=== PATIENT | male | born 1975 | race Caucasian/White ===

== ENCOUNTER 2023-04-08 18:15 | Emergency (ER) | payer OTHER, SELFPAY ==
[2023-04-08 18:26] VITALS: BP 145/62; PULSE 115; RESP 20; TEMP 36.9; O2SAT 94
[2023-04-08 18:32] VITALS: BP 145/62; PULSE 115; RESP 20; TEMP 36.9; O2SAT 94
--- NOTE | 2023-04-08 18:42 | ED.GENADULT ---
HPI - General Adult General Chief complaint: Skin/Abscess/Foreign Body Stated complaint: Rt Leg Infection Source: patient, RN notes reviewed and old records reviewed Mode of arrival: ambulatory Limitations: no limitations History of Present Illness HPI narrative: 47-year-old male patient presents to [facility] with complaint of open wound/sore on upper posterior thigh the patient stated started over the weekend and got firmer. patient states has had drainage. Patient states also has had coughing congestion for about a week, then has had fever chills and myalgias for the last 2 days. Patient has not taken anything for symptoms Related Data Allergies Allergy/AdvReac Type Severity Reaction Status Date / Time alprazolam [From Xanax] AdvReac Intermediate ankle edema Verified 04/08/23 18:25 fexofenadine [From Holly] AdvReac Intermediate elevated Verified 04/08/23 18:25 blood pressure Review of Systems Constitutional: Constitutional: Reports body ache(s), Reports chills, Reports fatigue and Reports fever(s) Eyes: Eyes: Reports no additional eye complaints ENT: Reports system reviewed and no additional complaints, except as documented and Reports nasal congestion Cardiovascular: Cardiovascular: Reports no additional cardiovascular complaints Respiratory: Respiratory: Reports chest congestion and Reports cough Integumentary/Breasts: Skin/Breast: Reports wounds ( open area to upper posterior right thigh) Neurologic: Reports system reviewed and no additional complaints, except as documented [facility] Past Medical History Medical History Allergies Heart disease Family History Family History Father Hypertension Heart disease Mother Diabetes mellitus Social History Social History Smoking status: Never smoker Alcohol intake: current Alcohol use details: seldom Substance use: never Substance use type: does not use Living arrangements: with family Occupation/Education: occupation 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 There is no relevant family history pertinent to the patient complaint. Exam Const: General: cooperative, healthy appearing, no acute distress and well nourished Nutritional Appearance: well nourished Orientation/consciousness: patient oriented x3 Limitations: no limitations HENMT: Head: normal to inspection and normocephalic Ears: external ears normal, TM's normal bilaterally, mastoids normal and Abnormal EAC present Face/Nose/Sinus: normal facial exam Face and sinus: normal facial exam Mouth: Yes Normal oral and palatal mucosa present, Yes oropharynx normal and Yes moist mucous membranes Throat: posterior oropharynx normal, tonsils normal, uvula midline and no uvular edema Eyes: General: appearance normal, both eyes and all related structures Sclera: sclerae normal Pupils: Equal, round and reactive pupils present Resp: Effort & Inspection: normal respiratory effort, able to speak in complete sentences, no audible wheezes, no cough, no respiratory distress and no retractions Cardio: Rate: regular rate Skin: General skin exam: wounds noted ( 5 cm x 5 cm subcutaneous skin abscess to posterior upper right leg.) Rashes: no rashes Trauma: no lacerations or abrasions Wounds: no wounds Other: 5 cm x 5 cm subcutaneous skin abscess to posterior upper right leg. wound open without drainage at this time Full body images: 1. 555 subcutaneous abscess. No drainage, no erythema no warmth Neuro: General: patient oriented x3 Cranial nerv
== END 2023-04-08 18:53 | disposition home or self-care (01) ==
PROVIDERS: Emergency Provider Registered Nurse; PCP Nurse Practitioner Family
DX: L02.415 Cutaneous abscess of right lower limb (principal); B95.62 Methicillin resistant Staphylococcus aureus infection as the cause of diseases classified elsewhere
CPT/HCPCS: 87070; 87147; 87181; 87186; 87205; 99213; G0463

== ENCOUNTER 2023-04-09 14:15 | Emergency (ER) | payer OTHER, SELFPAY | END 2023-04-09 14:19 | disposition left against medical advice (07) | PROVIDERS: PCP Nurse Practitioner Family | DX: Z53.21 Procedure and treatment not carried out due to patient leaving prior to being seen by health care provider (principal) | CPT/HCPCS: 99199 ==

== ENCOUNTER 2023-06-09 12:34 | Emergency (ER) | payer OTHER, SELFPAY ==
[2023-06-09 12:43] VITALS: BP 150/85; PULSE 108; RESP 18; TEMP 37.4; O2SAT 98
--- NOTE | 2023-06-09 12:43 | ED.GENADULT ---
HPI - General Adult General Chief complaint: Upper Respiratory Infection Stated complaint: Congestion and Cough Source: patient, RN notes reviewed and old records reviewed Mode of arrival: ambulatory Limitations: no limitations History of Present Illness HPI narrative: 47-year-old male presents to [facility] with complaints cough, congestion, sinus pressure in this started late Tuesday night. Patient taking [id number] medications with no relief. Patient denies chest pain, shortness of breath, weakness, dizziness Related Data Allergies Allergy/AdvReac Type Severity Reaction Status Date / Time alprazolam [From Xanax] AdvReac Intermediate ankle edema Verified 04/11/23 15:31 fexofenadine [From Holly] AdvReac Intermediate elevated Verified 04/11/23 15:31 blood pressure Review of Systems Constitutional: Constitutional: Reports no additional constitutional complaints, Denies body ache(s), Denies chills, Denies fatigue, Denies fever(s) and Reports headache(s) Eyes: Eyes: Reports no additional eye complaints and Denies blurry vision ENT: Reports system reviewed and no additional complaints, except as documented, Denies vertigo, Denies dizziness, Denies ear discharge, Denies otalgia, Denies facial pain, Denies headache(s), Reports nasal congestion, Reports nasal discharge, Reports sinus pain, Reports sinus pressure and Denies sore throat Cardiovascular: Cardiovascular: Reports no additional cardiovascular complaints, Denies chest pain, Denies chest pain at rest, Denies rapid heart rate and Denies dyspnea Respiratory: Respiratory: Reports no additional respiratory complaints, Reports chest congestion, Reports cough, Denies pain on inspiration, Denies pain with cough and Denies dyspnea Gastrointestinal: Gastrointestinal: Denies abdominal pain, Denies diarrhea, Denies nausea and Denies vomiting Integumentary/Breasts: Skin/Breast: Denies rash Neurologic: Reports system reviewed and no additional complaints, except as documented, Denies vertigo, Denies dizziness and Denies headache(s) Endocrine: Endocrine: Denies fatigue [facility] Past Medical History Medical History Allergies Heart disease Family History Family History Father Hypertension Heart disease Mother Diabetes mellitus Social History Social History Smoking status: Never smoker Alcohol intake: current Alcohol use details: seldom Substance use: never Substance use type: does not use Living arrangements: with family Occupation/Education: occupation 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 There is no relevant family history pertinent to the patient complaint. Exam Const: General: cooperative, healthy appearing, no acute distress and well nourished Nutritional Appearance: well nourished Orientation/consciousness: patient oriented x3 Limitations: no limitations HENMT: Head: normal to inspection and normocephalic Ears: external ears normal, TM's normal bilaterally, mastoids normal and Abnormal EAC present Face/Nose/Sinus: normal facial exam Face and sinus: normal facial exam Mouth: Yes Normal oral and palatal mucosa present, Yes oropharynx normal and Yes moist mucous membranes Throat: posterior oropharynx normal, tonsils normal, uvula midline and no uvular edema Eyes: General: appearance normal, both eyes and all related structures Sclera: sclerae normal Pupils: Equal, round and reactive pupils present Resp: Effort & Inspection: normal respiratory effort, able to speak in complete sentences, no audible wheezes,
== END 2023-06-09 13:04 | disposition home or self-care (01) ==
PROVIDERS: Emergency Provider Registered Nurse; PCP Nurse Practitioner Family
DX: U07.1 COVID-19 (principal); I51.9 Heart disease, unspecified; E78.00 Pure hypercholesterolemia, unspecified; I10 Essential (primary) hypertension; E11.9 Type 2 diabetes mellitus without complications
CPT/HCPCS: 87426; 87804; 99213; G0463

== ENCOUNTER 2023-08-21 17:02 | Emergency (ER) | payer OTHER, SELFPAY ==
[2023-08-21 17:20] VITALS: BP 105/86; PULSE 122; RESP 18; TEMP 38.1; O2SAT 95
[2023-08-21 17:21] VITALS: BP 105/86; PULSE 122; RESP 18; TEMP 38.1; O2SAT 95
--- NOTE | 2023-08-21 17:32 | ED.SKABFB ---
HPI - Skin/Abscess/Foreign Bdy General Chief complaint: Skin/Abscess/Foreign Body Stated complaint: fatigue Time Seen by Provider: 08/21/23 17:32 Source: patient Mode of arrival: ambulatory Limitations: no limitations History of Present Illness HPI narrative: 48-year-old male with history of cellulitis presents today with complaint of erythema, swelling, pain to right lower extremity for 3 days. Reports symptoms started on Tuesday and getting progressively worse. Ambulatory with steady gait. Patient reports today feeling feverish and fatigued. Taking ibuprofen and Tylenol to treat pain. Patient concern for cellulitis. Denies injury. All systems reviewed and negative except as noted above. Related Data Allergies Allergy/AdvReac Type Severity Reaction Status Date / Time alprazolam [From Xanax] AdvReac Intermediate ankle edema Verified 08/21/23 17:21 fexofenadine [From Holly] AdvReac Intermediate elevated Verified 08/21/23 17:21 blood pressure Review of Systems Review of Systems: CONSTITUTIONAL: Denies fever, chills, or sweats. EYES: Denies visual changes, redness, or discharge. ENT: Denies rhinorrhea, congestion, sore throat, or otalgia. CARDIOVASCULAR: Denies chest pain, palpitations, or edema. RESPIRATORY: Denies cough or dyspnea. GASTROINTESTINAL: Denies abdominal pain, nausea, vomiting, or diarrhea. GENITOURINARY: Denies dysuria or hematuria. SKIN: Denies rash or itching. Reports redness, pain and swelling to right lower extremity. MUSCULOSKELETAL: Denies back pain, joint pain, or myalgia. NEUROLOGIC: Denies headache, numbness, or weakness. PSYCHIATRIC: Denies anxiety or depression. All other systems reviewed are negative, except as documented in HPI. 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 There is no relevant family history pertinent to the presenting complaint. Exam Narrative: GENERAL: This is a well-nourished, well-developed patient, in no apparent distress. HEAD: normocephalic, atraumatic. EYES: PERRL. Sclera clear/white. Vision is grossly intact. EARS: External ears normal NOSE: External nose normal NECK: Neck supple, non-tender without lymphadenopathy, masses or thyromegaly. CARDIOVASCULAR: Regular rate and rhythm without murmurs, gallops, or rubs. RESPIRATORY: Clear to auscultation. Breath sounds equal bilaterally. No wheezes, rales, or rhonchi. SKIN: warm, Dry, intact with no suspicious lesions or rash, good texture and turgor. NEURO: awake, alert, and oriented to person, place and time. There were no obvious focal neurologic abnormalities. EXTREMITIES: No joint tenderness, effusion. Erythema to right lower extremity from ankle to just below knee and also posterior thigh. Warm to touch. No open wounds noted. No fluctuance concerning for abscess. Course Course Level of Care: Express Care Visit Vital Signs Vital signs: Vital Signs Temperature 38.1 C H 08/21/23 17:20 Pulse Rate 122 H 08/21/23 17:20 Respiratory Rate 18 08/21/23 17:20 Blood Pressure 105/86 08/21/23 17:20 Pulse Oximetry 95 08/21/23 17:20 Oxygen Delivery Room Air 08/21/23 17
[2023-08-21 17:33] VITALS: PULSE 120; O2SAT 95
[2023-08-21] MEDS: cefTRIAXone 1 GM, LIDOCAINE HCL 1% LOCAL INJ 2.1 ML IM (17:43)
== END 2023-08-21 17:58 | disposition home or self-care (01) ==
PROVIDERS: Emergency Provider Nurse Practitioner Family; PCP Nurse Practitioner Family
DX: L03.115 Cellulitis of right lower limb (principal)
CPT/HCPCS: 96372; 99213; G0463; J0696

== ENCOUNTER 2023-12-15 14:23 | Outpatient (CLI) | payer OTHER, SELFPAY ==
--- NOTE | ~2023-12-15 | CT_ITS ---
EXAMINATION: CT abdomen pelvis wo con DATE: 12/15/2023 14:44 INDICATION: Unspecified abdominal pain. TECHNIQUE: Computed tomography (CT) of the abdomen and pelvis was performed without intravenous contr ast. Automated exposure control and iterative reconstruction technique were employed. The dose-length product was 1650.90 mGy-cm. COMPARISON: None. FINDINGS: The visualized portions of lung bases demonstrate mild atelectasis. A calcified right lung nodule is consistent with old granulomatous disease. No pleural effusion. The heart size is normal. N o pericardial effusion. There is diffuse hepatic steatosis. The liver demonstrates surface nodularity , consistent with cirrhosis. There is mild splenomegaly. The gallbladder, pancreas, adrenal glands, a nd kidneys are normal. There is no urolithiasis. There are no dilated loops of bowel. The appendix is normal. There is an umbilical hernia containing fat. Periumbilical varices are noted. There is mild gastrohepatic, periportal, aortocaval, left para-aortic, bilateral common iliac, and bilateral platform beater al iliac lymphadenopathy. There is no free intraperitoneal fluid. There is moderate thoracic and lumb ar spondylosis. IMPRESSION: 1. Cirrhosis of the liver with portal venous hypertension. 2. Umbilical hernia containing fat. 3. Mild abdominal and pelvic lymphadenopathy, likely reactive. Reviewed, dictated and finalized at location A.
== END 2023-12-15 14:24 | disposition home or self-care (01) ==
LOC: ANHIMG 14:26
PROVIDERS: PCP Nurse Practitioner Family; Visit Provider Nurse Practitioner Family
DX: D72.829 Elevated white blood cell count, unspecified (principal); R10.9 Unspecified abdominal pain; R19.7 Diarrhea, unspecified; K74.60 Unspecified cirrhosis of liver; K42.9 Umbilical hernia without obstruction or gangrene
CPT/HCPCS: 74176

== ENCOUNTER 2024-01-05 08:17 | Outpatient (CLI) | payer OTHER, SELFPAY ==
--- NOTE | ~2024-01-05 | US_ITS ---
EXAMINATION: US abdomen limited DATE: 01/05/2024 09:04 INDICATION: Cirrhosis TECHNIQUE: Multiple grayscale and Doppler ultrasound images of the abdomen were obtained. COMPARISON: 12/15/2023 FINDINGS: The pancreatic head and body are normal in appearance. The pancreatic tail is not visualized. The vi sualized proximal inferior vena cava and aorta are unremarkable. There is subtle liver surface nodula rity consistent with cirrhosis. There is increased parenchymal echogenicity and coarsened echotexture consistent with diffuse hepatic steatosis. No liver lesion identified. No intrahepatic biliary duct dilation suspected. Portal venous flow was seen in the hepatopetal, normal direction and has normal Doppler waveform. The gallbladder is normal in appearance. There is no cholelithiasis. The common bi le duct measures 3-4 mm, which is normal. Sonographic Collins sign was reported as negative by the son ographer. IMPRESSION: 1. Diffuse hepatic steatosis and cirrhosis. Reviewed, dictated and finalized at location A.
== END 2024-01-05 08:18 | disposition home or self-care (01) ==
PROVIDERS: PCP Nurse Practitioner Family; Visit Provider Nurse Practitioner Family
DX: K74.60 Unspecified cirrhosis of liver (principal); K76.0 Fatty (change of) liver, not elsewhere classified
CPT/HCPCS: 76705

== ENCOUNTER 2024-02-02 15:40 | Outpatient (CLI) | payer OTHER, SELFPAY ==
[2024-02-02 15:55] LABS: Basophils Absolute Auto 0.1 K/mm3 (0.0-0.1); Basophils Percent Auto 0.6 % (0.2-1.2); Eosinophils Absolute Auto 0.4 K/mm3 (0-0.3); Eosinophils Percent Auto 2.5 % (0-4.4); Hematocrit 41.6 % (42.0-52.0); Hemoglobin 13.7 g/dL (14.0-18.0); Immature Granulocyte Absolute 0.06 K/mm3 (0.00-0.031); Immature Granulocyte Percent A 0.4 % (0-0.5); Lymphocytes Absolute Auto 4.31 K/mm3 (0.9-3.2); Lymphocytes Percent Auto 28.6 % (18.3-44.2); Mean Corpuscular HGB Conc 32.9 g/dl (32-36); Mean Corpuscular Hemoglobin 31.6 pg (26-34); Mean Corpuscular Volume 95.9 fl (80-100); Monocytes Percent Auto 6.3 % (2.6-8.5); Neutrophils Absolute Auto 9.3 K/mm3 (1.3-6.7); Neutrophils Percent Auto 61.6 % (45.5-73.1); Platelet Count Result 326 k/mm3 (150-375); Red Blood Count 4.34 M/mm3 (4.6-6.20); Red Cell Distribution Width 12.5 % (11.5-14.5); White Blood Count 15.1 K/mm3 (4.5-10.0)
[2024-02-02 16:00] LABS: Atypical Lymphocytes Present; Platelet Estimate Adequate (Adequate); Schistocytes None Seen
[2024-02-02 16:38] LABS: Alanine Aminotransferase 45 U/L (6-50); Albumin Level 4.6 g/dL (3.5-5.1); Alkaline Phosphatase 74 U/L (38-126); Anion Gap 9 mmol/L (4-12); Aspartate Amino Transferase 56 U/L (17-59); Bilirubin,Total 0.6 mg/dL (0.2-1.3); Blood Urea Nitrogen 17 mg/dL (9-20); CRP 1.2 mg/dL (<1.0); Calcium 9.6 mg/dL (8.4-10.2); Carbon Dioxide 31 mmol/L (22-30); Chloride 99 mmol/L (98-107); Estimated Glomerular Filt Rate > 60; Glucose 120 mg/dL (65-110); Potassium 4.2 mmol/L (3.4-5.0); Sodium 139 mmol/L (137-145)
[2024-02-02 18:06] LABS: Erythrocyte Sedimentation Rate 21 mm/hr (0-20)
== END 2024-02-02 15:41 | disposition home or self-care (01) ==
LOC: ANHLAB 15:42
PROVIDERS: PCP Nurse Practitioner Family; Visit Provider Internal Medicine Hematology & Oncology
DX: D72.829 Elevated white blood cell count, unspecified (principal)
CPT/HCPCS: 36415; 80053; 85025; 85652; 86140; 88184

== ENCOUNTER 2024-04-09 08:12 | Emergency (ER) | payer OTHER, SELFPAY ==
[2024-04-09 08:26] VITALS: BP 130/78; PULSE 108; RESP 20; TEMP 36.8; O2SAT 100
[2024-04-09 08:30] VITALS: BP 130/78; PULSE 108; RESP 20; TEMP 36.8; O2SAT 100
--- NOTE | 2024-04-09 08:52 | ED.SKABFB ---
HPI - Skin/Abscess/Foreign Bdy General Chief complaint: Skin/Abscess/Foreign Body Stated complaint: Cellulitis Right Leg Time Seen by Provider: 04/09/24 08:37 Source: patient, RN notes reviewed and old records reviewed Mode of arrival: ambulatory Limitations: no limitations History of Present Illness HPI narrative: Patient presents today complaining of cellulitis of the right lower leg. 6 days ago he noted redness to this leg and 5 days ago he had an appointment with his PCP and was told to go to the ER. He was subsequently seen in the ER at [facility]. Labs were completed and patient was discharged home on a 10 course of Keflex. States the antibiotics have helped with the redness and cellulitis symptoms, but he presents today asking if there is anything he can take, that can kick start these antibiotics and make them work better. Patient had cellulitis last year and was admitted to the hospital for 1 week. He is trying to avoid that at this time. Related Data Home Medications Medication Instructions Recorded Confirmed cholecalciferol (vitamin D3) 125 125 mcg PO TID 12/21/23 04/09/24 mcg (5,000 unit) capsule cephalexin 500 mg capsule 500 mg PO QID 04/09/24 04/09/24 lactobacillus combination no.9 4 4,000 mmu cells PO DAILY 04/09/24 04/09/24 billion cell capsule (Adult 50 Plus Probiotic) naproxen 500 mg tablet 500 mg PO BID 04/09/24 04/09/24 Allergies Allergy/AdvReac Type Severity Reaction Status Date / Time alprazolam [From Xanax] AdvReac Intermediate ankle edema Verified 04/09/24 08:33 fexofenadine [From Holly] AdvReac Intermediate elevated Verified 04/09/24 08:33 blood pressure Review of Systems Review of Systems: CONSTITUTIONAL: Denies body aches, fever, chills, or sweats. EYES: Denies visual changes, redness, or discharge. ENT: Denies rhinorrhea, congestion, sore throat, or otalgia. CARDIOVASCULAR: Denies chest pain, palpitations, or edema. RESPIRATORY: Denies cough or dyspnea. GASTROINTESTINAL: Denies abdominal pain, nausea, vomiting, or diarrhea. GENITOURINARY: Denies dysuria or hematuria. SKIN: + redness and swelling to the right lower leg MUSCULOSKELETAL: Denies back pain, joint pain, or myalgia. NEUROLOGIC: Denies headache, numbness, tingling, or weakness. PSYCH: Denies depression or anxiety. [facility] Past Medical History Medical History Allergies Heart disease Family History Family History Father Hypertension Heart disease Mother Diabetes mellitus Social History Social History Social History: 02/24/24 very confident with medical forms Smoking status: Never smoker Alcohol intake: current Alcohol use details: seldom Substance use: never Substance use type: does not use Do You Feel Safe in your Home?: Yes Lack of Transportation: No Lack of Food: Never True Current Housing: I Have Housing Concerned About Future Housing: No Difficulty Paying Gas/Electric Bills: No Difficulty Paying for Meds: No Currently Unemployed: No Education: Bachelor's Degree Difficulty w/ Childcare or Family Care: No Living arrangements: with family Occupation/Education: occupation 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 Please see nursing chart for further information. There is no relevant family history pertinent to the presenting complaint Exam Narrative: GENERAL: Well-appearing, well-nourished, and in no acute distress. HEAD: Normocephalic, atraumatic. EYES: EOMI. No redness or drainage. Conjunctivae normal. ENT: Mucous membranes pink and moist. NECK: Normal AROM. CHEST: No respiratory distress. EXTREMITIES: Right leg: Erythema and increased warmth to the lower leg. Patient has the area of redness marked with a marker, and has receded from its peak. Distal sensation intact. Capillary refill normal. Full range of motion of the ankle and knee. SKIN: Warm, dry, no rash. Capillary refill normal. Normal skin turgor. NEURO: No focal deficits. Alert and oriented x3. Gait steady. PSYCH: Normal affect. No signs of depression or anxiety. Course Course Level of Care: Express Care Visit Vital Signs Vital signs: Vital Signs Temperature 98.3 F 04/09/24 08:26 Pulse Rate 108 H 04/09/24 08:26 Respiratory Rate 20 04/09/24 08:26 Blood Pressure 130/78 04/09/24 08:26 Pulse Oximetry 100 04/09/24 08:26 Oxygen Delivery Room Air 04/09/24 08:26 Temperature 98.3 F 04/09/24 08:30 Pulse Rate 108 H 04/09/24 08:30 Respiratory Rate 20 04/09/24 08:30 Blood Pressure 130/78 04/09/24 08:30 Pulse Oximetry 100 04/09/24 08:30 Oxygen Delivery Room Air 04/09/24 08:30 Reviewed MDM - Skin/Abscess/Foreign Bdy MDM Narrative Medical decision making narrative: Patient does state that the antibiotics are working. Recommend that patient follow-up with his PCP when he is finished with the Keflex to determine if additional antibiotics are needed. At this time since he is seeing improvement, no additional interventions are recommended. Patient agrees with plan. Anticipatory guidance given. Differential Diagnosis Differential diagnosis: Likely abscess of skin or subcutaneous tissue and cellulitis Critical Care Time Critical Care Time Critical Care Time: No Discharge Plan Discharge Clinical Impression: Cellulitis of right leg Patient Disposition: Home, Self-Care Condition: Stable Instructions: Cellulitis (ED) Additional Instructions: Please continue to take your Keflex until gone. Elevate your leg to help with swelling. Please follow-up with your PCP when you are finished with your Keflex, if your symptoms have not resolved. As discussed, please go to the ER immediately if symptoms worsen to include fever, worsening redness. Your blood pressure was elevated above 120/80 today at Urgent Care. This puts you above the threshold for follow up. Please schedule a followup visit with your personal physician as soon as possible, for further evaluation and treatment. Even blood pressure exceeding 120/80 may indicate pre-hypertension. Prescriptions: No Action cephalexin 500 mg capsule 500 mg PO QID naproxen 500 mg tablet 500 mg PO BID Adult 50 Plus Probiotic 4 billion cell capsule 4,000 mmu cells PO DAILY pantoprazole [Protonix] 20 mg tablet,delayed release (DR/EC) 20 mg PO BID Qty: 60 4RF Rx Instructions: take 1 tablet b.i.d. on empty stomach and wait 15-20 minutes before eating or drinking metoprolol succinate 25 mg tablet extended release 24 hr See Rx Instructions .ROUTE .COMPLEX Qty: 90 1RF Dose Instruction: TAKE 1 TABLET BY MOUTH DAILY Rx Instructions: TAKE 1 TABLET BY MOUTH DAILY cholecalciferol (vitamin D3) 125 mcg (5,000 unit) capsule 125 mcg PO TID atorvastatin 40 mg tablet 40 mg PO QHS Qty: 90 1RF amlodipine 5 mg tablet 5 mg PO DAILY Qty: 90 1RF lisinopril 40 mg tablet 40 mg PO DAILY Qty: 90 1RF metformin 500 mg tablet extended release 24 hr 1,000 mg PO DAILY Qty: 180 1RF Hold Instructions: Order Change semaglutide 0.25 mg or 0.5 mg (2 mg/3 mL) pen injector 0.5 mg subcut WEEKLY Qty: 3 0RF furosemide 20 mg tablet 20 mg PO QAM Qty: 90 0RF Follow-up/Referrals: PHYSICIAN,CLEAN UP SUPERVISOR [Primary Care Provider] - Time of Disposition: 08:54
== END 2024-04-09 08:58 | disposition home or self-care (01) ==
PROVIDERS: Emergency Provider Nurse Practitioner
DX: L03.115 Cellulitis of right lower limb (principal); I51.9 Heart disease, unspecified
CPT/HCPCS: 99211; G0463

== ENCOUNTER 2024-06-21 14:06 | Outpatient (CLI) | payer OTHER, SELFPAY ==
--- OUTSIDE RECORDS SUMMARY | 2024-06-21 14:12 | XMS_ITS | Clinical Summary ---
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 Name Role Phone Unavailable Primary Care Provider Unavailabl e Social History Tobacco Use Types Packs/Day Years Used Date Smoking Tobacco: Never Assessed Sex and Gender Information Value Date Recorded Sex Assigned at Not on file Legal Sex Male 6:17 PM CDT Gender Identity Not on file Sexual Orientation Not on file Plan of Treatment Health Maintenance Due Date Last Done Comments Colorectal Cancer Screening Colonoscopy (10 Years) 1976 Annual Physical 08/18/1979 Hepatitis C 1994 DTaP, Tdap and Td Vaccines ( 1 - Tdap) 08/18/1995 Hepatitis B Vaccines (1 of 3 - 19+ 3-dose series) 08/18/1995 COVID-19 Vaccine (2023-2 5 season) 2024 Influenza Adult (#1) 2024 Meningococcal B Vaccine Aged Out No l onger eligible based on patient's age to complete this topic Meningococcal Vaccine Aged Out No julien jenna eligible based on patient's age to complete this topic Pneumococcal Vaccine: Pediat rics (0 to 5 Years) and At-Risk Patients (6 to 64 Years) Aged Out No longer eligible b ased on patient's age to complete this topic RSV Immunizations Under 20 Months Aged Out No longer eligible based on patient's age to complete this topic
--- OUTSIDE RECORDS SUMMARY | 2024-06-21 14:12 | XMS_ITS | Clinical Summary ---
Author Organization [facility] Address [address] [place] [address] Care Team Providers Care Manager Books Name Role Phone Thalia Beckman NP Primary Care Provider [phone] Allergies No known active allergies Medications metoprolol XL (TOPROL-XL) 25 mg extended release tablet Take 1 tablet (25 mg total) by mouth daily 07/29/2023 Active amLODIPine (NORVASC) 5 mg tablet Take 1 tablet (5 mg total) by mouth daily Active lisinopriL (PRINIVIL,ZESTR IL) 40 mg tablet Take 1 tablet (40 mg total) by mouth daily Active semaglutide (Ozempic) 0.25 mg or 0.5 mg(2 mg/1.5 mL) pen injector injection Inject 0.25 mg under the skin every 7 days Weekly on Tuesday Active atorvastatin (LIPITOR) 40 mg tablet Take 1 tablet (40 mg total) by mouth nightly Active levocetirizine (XYZAL) 5 mg tablet Take 1 tablet (5 mg total) by mouth daily Active cholecalciferol (VITAMIN D-3) 5,000 unit tablet Take 1 tablet (5,000 Units total) by mouth daily Active naproxen (NAPROSYN) 500 mg tablet Take 1 tablet (500 mg total) by mouth 2 (two) times a day with meals 60 tablet 04/04/2024 Active Active Problems Problem Noted Date Diagnosed Date Cellulitis of right lower limb 08/25/2023 Sepsis without acute organ dysfunction Morbid obesity 08/25/2023 Primary hypertension 08/25/2023 Cellulitis of right lower extremity 08/25/2023 Encounters Date Type Department Care Team Description 04/04/2024 2:47 PM BUSINESS CONTINUITY PLANNER - 04/04/2024 4:44 PM BUSINESS CONTINUITY PLANNER Emergency [facility] Emergency Department [address] [place] [address] [phone] Cellulitis of right lower extremity (Primary Dx) Discharge Disposition: Discharge to home or self care from Last 3 Months Medical History Medical History Date Comments Hypertension Morbid obesity (HCC) Hyperlipidemia Social History Tobacco Use Types Packs/Day Years Used Date Smoking Tobacco: Never Smokeless Tobacco: Never Tobacco Cessation:Counseling Given: Not Answered [facility] Utilities Answer Date Recorded In the past 12 months has th e electric, gas, oil, or water company threatened to shut off services in your home? No 08/26/2023 Social Connection and Isolat ion Panel [NHANES] Answer Date Recorded In a typical week, how many times do you talk on the phone with family, friends, or neighbors? More than three times a week 08/26/2023 How often do you get togethe r with friends or relatives? More than three times a week 08/26/2023 How often do you attend chur ch or hoahaoism services? Never 08/26/2023 Do you belong to any clubs o r organizations such as shinto groups, unions, fraternal or athletic groups, or school groups? No 08/26/2023 How often do you attend meet ings of the clubs or organizations you belong to? Never 08/26/2023 Are you , , di vorced, , never , or living with a partner? 08/26/2023 Overall Financial Resource Strain (CARDIA) Answe r Date Recorded How hard is it for you to pa y for the very basics like food, housing, medical care, and heating? Not very hard 08/26/2023 Hunger Vital Sign Answer Date Recorded Within the past 12 months, y ou worried that your food would run out before you got the money to buy more. Never true 08/26/19 24 Within the past 12 months, t he food you bought just didn't last and you didn't have money to get more. Never true 08/26/2023 PRAPARE - Transportation Answer Date Re corded In the past 12 months, has l ack of transportation kept you from medical appointments or from getting medications? No 08/07 In the past 12 months, has l ack of transportation kept you from meetings, work, or from getting things needed for daily living? No 08/26/2023 Housing Stability Vital Sign Answer Jose Luis e Recorded In the last 12 months, was t here a time when you were not able to pay the mortgage or rent on time? No 08/26/2023 In the last 12 months, how many places have you lived? 1 08/26/2023 In the last 12 months, was t here a time when you did not have a steady place to sleep or slept in a intermediate (including now)? No 08/26/2023 Personal Safety Answer Date Recorded Have you ever been in or are you currently in a harmful physical or emotional relationship or is someone making you feel afraid or unsafe? Denies 04/04/2024 Sex and Gender Information Value Date Recorded Sex Assigned at Not on file Legal Sex Male 6:08 PM BUSINESS CONTINUITY PLANNER Gender Identity Not on file Sexual Orientation Not on file Obstetrics History Last Filed Vital Signs Vital Sign Reading Time Taken Comments Blood Pressure 110/59 04/04/2024 4:00 PM BUSINESS CONTINUITY PLANNER Pulse 104 04/04/2024 4:00 PM BUSINESS CONTINUITY PLANNER Temperature 37.3 C (99.1 F) 04/04/2024 1:43 PM BUSINESS CONTINUITY PLANNER Respiratory Rate 18 04/04/2024 4:00 PM BUSINESS CONTINUITY PLANNER Oxygen Saturation 100% 04/04/2024 4:00 PM BUSINESS CONTINUITY PLANNER Inhaled Oxygen Concentration - - Weight 155.3 kg (342 lb 6 oz) 04/04/2024 1:43 PM BUSINESS CONTINUITY PLANNER Height 180.3 cm (5' 11 ) 04/04/2024 1:43 PM BUSINESS CONTINUITY PLANNER Body Mass Index 47.75 04/04/2024 1:43 PM BUSINESS CONTINUITY PLANNER Plan of Treatment Health Maintenance Due Date Last Done Comments Colon Cancer Screening-Colonoscopy 1976 Depression Screening 1976 Hepatitis C Screening 1976 Pneumococcal vaccine <65 (1 of 2 - PCV) 1982 DTaP/Tdap/Td Vaccine (1 - Tdap) 11/04/1990 1 Hepatitis B Screening 1994 Regular Well Visit/Exam 18-64 1994 Covid-19 Vaccine ( season) 2024, 12/16/2020 Influenza Vaccine (#1) 2024 Procedures Procedure Name Priority Date/Time Associated Diagnosis Comments SEPSIS LACTATE WITH REFLEX STAT 04/04/2024 3:14 PM BUSINESS CONTINUITY PLANNER MANUAL DIFFERENTIAL STAT 04/04/2024 2 :08 PM BUSINESS CONTINUITY PLANNER EGFR STAT 04/04/2024 2:08 PM BUSINESS CONTINUITY PLANNER COMPREHENSIVE METABOLIC PANEL STAT 04/04/2024 2:08 PM BUSINESS CONTINUITY PLANNER CBC WITH AUTO DIFFERENTIAL STAT 04/04/2024 2:08 PM BUSINESS CONTINUITY PLANNER from Last 3 Months Results * Sepsis Lactate w/ Reflex (04/04/2024 3:14 PM BUSINESS CONTINUITY PLANNER) Pathologist [facility] Sepsis Lactate 1.1 0.7 - 2.0 mmol/L Comment:Testing performed by : [facility], [address] [place] [address], [id number] Blood 04/04/2024 3:14 PM BUSINESS CONTINUITY PLANNER 04/04/2024 3:17 PM BUSINESS CONTINUITY PLANNER Wade GONZALES LAB BLOOD ORDERABLES [facility] [address] [facility] Department [place] [address] * eGFR (04/04/2024 2:08 PM BUSINESS CONTINUITY PLANNER) eGFR 75 >=60 mL/min/1. 73 m2 Comment: Interpretive Data Reference Interval Normal >/= 90 mL/min/1.73m2 Mildly decreased* 60 - 89 mL/min/1.73m2 Mildly to moderately decreased 45 - 59 mL/min/1.73m2 Moderately to severely decreased 30 - 44 mL/min/1.73m2 Severely decreased 15 - 29 mL/min/1.73m2 Kidney Failure < 15 mL/min/1.73m2 *Relative to young adult level Estimated glomerular filtration rate is determined by the 2020 CKD-EPI equation recommended by the National Kidney Foundation (A Unifying Approach to GFR Estimation: Recommendations of the NKF-ASK Task Force on Reassessing the Inclusion of Race in Diagnosing Kidney Disease, JASN 2020). The CKD-EPI equation should not be used for patients with unstable renal function and has not been validated in children and those over 70. Current interpretive data was last reviewed 2021. Testing performed by: [address] [address] Blood 04/04/2024 2:08 PM BUSINESS CONTINUITY PLANNER 04/04/2024 2:17 PM BUSINESS CONTINUITY PLANNER us Musa Mcmahan DO LAB BLOOD ORDERABLES Final Res ult J CARLOS MALONE [facility] Department [place] [address] * (ABNORMAL) CBC with auto differential (04/04/2024 2:08 PM BUSINESS CONTINUITY PLANNER) WBC 17.1(H) 3.8 - 9.9 K/cumm Comment:Testing performed by : [address] [address] Hgb 12.2(L) 13.0 - 17.5 g/dL J CARLOS MALONE Comment:Testing performed by : [address] [address] Hct 36.3(L) 38.9 - 50.3 % J CARLOS MALONE Comment:Testing performed by : [address] [address] Plt 209 150 - 400 K/cumm J CARLOS MALONE Comment:Testing performed by : [address] [address] MPV 9.5 9.1 - 12.3 fL J CARLOS MALONE Comment:Testing performed by : [address] [address] RBC 3.87(L) 4.30 - 5.80 M/cumm J CARLOS MALONE Comment:Testing performed by : [address] [address] MCV 93.8 81.3 - 96.4 fL J CARLOS MALONE Comment:Testing performed by : [address] [address] MCH 31.5 27.1 - 33.3 pg J CARLOS MALONE Comment:Testing performed by : [address] [address] MCHC 33.6 32.3 - 35.7 g/dL J CARLOS MALONE Comment:Testing performed by : [address] [address] RDW CV 13.5 11.1 - 14.9 % J CARLOS MALONE Comment:Testing performed by : [address] [address] RDW SD 46.3 35.7 - 48.1 fL J CARLOS MALONE Comment:Testing performed by : [address] [address] NRBC abs 0.00 0.00 - 0.01 K/cumm J CARLOS MALONE Comment:Testing performed by : [address] [address] Blood 04/04/2024 2:08 PM BUSINESS CONTINUITY PLANNER 04/04/2024 2:17 PM BUSINESS CONTINUITY PLANNER us Musa Mcmahan DO LAB BLOOD ORDERABLES Edited Re denise - Final J CARLOS [address] [facility] Department of Laboratories [place], [place] [id number] * (ABNORMAL) Manual Differential (04/04/2024 2:08 PM BUSINESS CONTINUITY PLANNER) Differential Manual Comment:Testing performed by : [address] [address] Cells Counted 100 J CARLOS MALONE Comment:Testing performed by : [address] [address] Neutrophil abs 13.3(H) 1.5 - 6.5 K/cumm J CARLOS MALONE Comment:Testing performed by : [address] [address] Lymphocyte abs 2.6 0.8 - 3.3 K/cumm J CARLOS MALONE Comment:Testing performed by : [address] [address] Monocyte abs 1.0(H) 0.2 - 0.8 K/cumm J CARLOS Comment:Testing performed by : [address] [address] Basophil abs 0.2(H) 0.0 - 0.1 K/cumm J CARLOS Comment:Testing performed by : [address] [address] Neutrophil pct 78.0 % J CARLOS Comment: Interpretive Data Percent cell count reference ranges are not reported, since discordance with absolute values may lead to misinterpretation of CBC data. Current Interpretive Data was last revised on 2017. Testing performed by: [address] [address] Lymphocyte pct 15.0 % J CARLOS Comment: Interpretive Data Percent cell count reference ranges are not reported, since discordance with absolute values may lead to misinterpretation of CBC data. Current Interpretive Data was last revised on 2017. Testing performed by: [address] [address] Monocyte pct 6.0 % J CARLOS Comment: Interpretive Data Percent cell count reference ranges are not reported, since discordance with absolute values may lead to misinterpretation of CBC data. Current Interpretive Data was last revised on 2017. Testing performed by: [address] [address] Basophil pct 1.0 % J CARLOS Comment: Interpretive Data Percent cell count reference ranges are not reported, since discordance with absolute values may lead to misinterpretation of CBC data. Current Interpretive Data was last revised on 2017. Testing performed by: [address] [address] RBC morphology Consistent with RBC Indicies J CARLOS Comment:Testing performed by : [address] [address] Platelet estimate Automated Count Confirmed J CARLOS MALONE Comment:Testing performed by : [address], [place]., [address] Blood 04/04/2024 2:08 PM BUSINESS CONTINUITY PLANNER 04/04/2024 2:17 PM BUSINESS CONTINUITY PLANNER us Musa Mcmahan DO LAB BLOOD ORDERABLES Final Res ult J CARLOS [address] [facility] Department [place] [address] * (ABNORMAL) Comprehensive metabolic panel (04/04/2024 2:08 PM BUSINESS CONTINUITY PLANNER) Sodium 134(L) 135 - 145 mmol/L Comment:Testing performed by : [address] [address] Potassium, pl 4.3 3.3 - 4.9 mmol/L J CARLOS Comment:Testing performed by : [address] [address] Chloride 98 97 - 110 mmol/L J CARLOS Comment:Testing performed by : [address] [address] CO2 27 22 - 32 mmol/L J CARLOS Comment:Testing performed by : [address] [address] Anion gap 9 2 - 15 mmol/L J CARLOS Comment:Testing performed by : [address] [address] BUN 25 6 - 25 mg/dL J CARLOS Comment:Testing performed by : [address] [address] Creatinine 1.20 0.80 - 1.30 mg/dL J CARLOS Comment:Testing performed by : [address] [address] Glucose 129 70 - 199 mg/dL J CARLOS Comment: Interpretive Data Fasting glucose >/= 126 mg/dl is diagnostic for diabetes. Fasting is defined as no caloric intake for at least 8 hours. Fasting glucose between 100 mg/dl to 125 mg/dl is diagnostic of prediabetes. In a patient with classic symptoms of hyperglycemia or hyperglycemic crisis, a random glucose >/= 200 mg/dl is diagnostic for diabetes. In the absence of unequivocal hyperglycemia, results should be confirmed by repeat testing. The classification and Diagnosis of Diabetes Diabetes Care 2022; 46: S19-S40. Current interpretive data was last revised 2022. Testing performed by: [facility], [address] [place] [address]., [address] Calcium 9.1 8.5 - 10.3 mg/dL J CARLOS Comment:Testing performed by : [address] [address] Bilirubin, total 0.6 0.1 - 1.2 mg/dL J CARLOS Comment:Testing performed by : [address] [address] Protein, pl 8.9(H) 6.5 - 8.5 g/dL J CARLOS Comment:Testing performed by : [address] [address] Albumin 3.9 3.5 - 5.0 g/dL J CARLOS Comment:Testing performed by : [address] [address] Alk phos 59 40 - 130 Units/L J CARLOS Comment:Testing performed by : [address] [address] ALT 26 7 - 55 Units/L J CARLOS Comment:Testing performed by : [address] [address] AST 30 10 - 50 Units/L J CARLOS Comment:Testing performed by : [address] [address] Blood 04/04/2024 2:08 PM BUSINESS CONTINUITY PLANNER 04/04/2024 2:17 PM BUSINESS CONTINUITY PLANNER us Musa Mcmahan DO LAB BLOOD ORDERABLES Final Res ult J CARLOS [address] [facility] Department [place] [address] from Last 3 Months Insurance [facility] [place] [address] [employer] Advance Directives For more information, please contact: [phone] * Full Code (Latest Code Status on File) Date Activated Date Inactivated Comments 08/25/2023 3:04 PM 08/31/2023 3:46 PM Care Teams Manager Books Relationship Specialty Start Date End Date Thalia Beckman NP [address] [place] [id number] PCP - General Nurse Practitioner 04/09/23
--- OUTSIDE RECORDS SUMMARY | 2024-06-21 14:12 | XMS_ITS | Referral Summary ---
Author Organization [facility] Address [address] [place] [address] Care Team Providers Care Mosaic Worker Name Role Phone Thalia Beckman NP Primary Care Provider [phone] Encounters Date Type Department Care Team Description 04/04/2024 2:47 PM DIRECTOR [place] - 04/04/2024 4:[address] [facility] Emergency [facility] Emergency Department [address] [place] [id number] Cellulitis of right lower extremity (Primary Dx) Discharge Disposition: Discharge to home or self care from Last 3 Months Allergies No known active allergies Medications metoprolol [...] 08/25/2023 Cellulitis of right lower extremity 08/25/2023 Social History Tobacco Use Types Packs/Day Years Used Date Smoking Tobacco: Never Smokeless Tobacco: Never Tobacco Cessation:Counseling Given: Not Answered [facility] Utilities Answer Date Recorded In the past 12 months has th e [employer], gas, oil, or water [employer] threatened to shut off services in your [...] often do you attend chur ch or jain services? Never 08/26/2023 Do you belong to any clubs o r organizations such as taoist groups, unions, fraternal or athletic groups, or [...] 08/26/2023 Housing Stability Vital Sign Answer Jose Lusi e Recorded In the last 12 months, [...] place to sleep or slept in a fci (including now)? No 08/26/2023 Personal Safety Answer Date Recorded Have you ever been in or are you currently in a harmful physical or emotional relationship or is someone making you feel afraid or unsafe? Denies 04/04/2024 Sex and Gender Information Value Date Recorded Sex Assigned at Not on file Legal Sex Male 6:08 PM DIRECTOR [place] Gender Identity Not on file Sexual Orientation Not on file Last Filed Vital Signs Vital Sign Reading Time Taken Comments Blood Pressure 110/59 04/04/2024 4:00 PM DIRECTOR [place] Pulse 104 04/04/2024 4:00 PM DIRECTOR [place] Temperature 37.3 C (99.1 F) 04/04/2024 1:43 PM DIRECTOR [place] Respiratory Rate 18 04/04/2024 4:00 PM DIRECTOR [place] Oxygen Saturation 100% 04/04/2024 4:00 PM DIRECTOR [place] Inhaled Oxygen Concentration - - Weight 155.3 kg (342 lb 6 oz) 04/04/2024 1:43 PM DIRECTOR [place] Height 180.3 cm (5' 11 ) 04/04/2024 1:43 PM DIRECTOR [place] Body Mass Index 47.75 04/04/2024 1:43 PM DIRECTOR [place] Plan of Treatment Not on file Procedures Procedure Name Priority Date/Time Associated Diagnosis Comments SEPSIS LACTATE WITH REFLEX STAT 04/04/2024 3:14 PM DIRECTOR [place] MANUAL DIFFERENTIAL STAT 04/04/2024 2 :08 PM DIRECTOR [place] EGFR STAT 04/04/2024 2:08 PM DIRECTOR [place] COMPREHENSIVE METABOLIC PANEL STAT 04/04/2024 2:08 PM DIRECTOR [place] CBC WITH AUTO DIFFERENTIAL STAT 04/04/2024 2:08 PM DIRECTOR [place] from Last 3 Months Results * Sepsis Lactate w/ Reflex (04/04/2024 3:14 PM DIRECTOR [place]) Sepsis Lactate 1.1 0.7 - 2.0 mmol/L Comment:Testing performed by : [facility], [address] [place] [address]., [address] Blood 04/04/2024 3:14 PM DIRECTOR [place] 04/04/2024 3:17 PM DIRECTOR [place] us Wade GONZALES LAB BLOOD ORDERABLES Final R esult J CARLOS [address] [facility] Department [place] [address] * eGFR (04/04/2024 2:08 PM DIRECTOR [place]) eGFR 75 >=60 mL/min/1. 73 m2 Comment: [...] was last reviewed 2021. Testing performed by: [facility], [address] [place] [address]., [address] Blood 04/04/2024 2:08 PM DIRECTOR [place] 04/04/2024 2:17 PM DIRECTOR [place] us Musa Mcmahan DO LAB BLOOD ORDERABLES Final Res ult [facility] [address] [facility] Department [place] [address] * (ABNORMAL) CBC with auto differential (04/04/2024 2:08 PM DIRECTOR [place]) WBC 17.1(H) 3.8 - 9.9 K/cumm Comment:Testing performed by : [address] [address] Hgb 12.2(L) 13.0 - 17.5 g/dL J CARLOS Comment:Testing performed by : [address] [address] Hct 36.3(L) 38.9 - 50.3 % J CARLOS Comment:Testing performed by : [address] [address] Plt 209 150 - 400 K/cumm J CARLOS Comment:Testing performed by : [address] [address] MPV 9.5 9.1 - 12.3 fL J CARLOS Comment:Testing performed by : [address] [address] RBC 3.87(L) 4.30 - 5.80 M/cumm J CARLOS Comment:Testing performed by : [address] [address] MCV 93.8 81.3 - 96.4 fL J CARLOS Comment:Testing performed by : [address] [address] MCH 31.5 27.1 - 33.3 pg J CARLOS Comment:Testing performed by : [address] [address] MCHC 33.6 32.3 - 35.7 g/dL J CARLOS Comment:Testing performed by : [address] [address] RDW CV 13.5 11.1 - 14.9 % J CARLOS Comment:Testing performed by : [address] [address] RDW SD 46.3 35.7 - 48.1 fL J CARLOS Comment:Testing performed by : [address] [address] NRBC abs 0.00 0.00 - 0.01 K/cumm J CARLOS Comment:Testing performed by : [address] [address] Blood 04/04/2024 2:08 PM DIRECTOR [place] 04/04/2024 2:17 PM DIRECTOR [place] us Musa Mcmahan DO LAB BLOOD ORDERABLES Edited Re sult - Final J CARLOS [address] [facility] Department [place] [address] * (ABNORMAL) Manual Differential (04/04/2024 2:08 PM DIRECTOR [place]) Differential Manual Comment:Testing performed by : [address] [address] Cells Counted 100 J CARLOS Comment:Testing performed by : [address] [address] Neutrophil abs 13.3(H) 1.5 - 6.5 K/cumm J CARLOS Comment:Testing performed by : [address] [address] Lymphocyte abs 2.6 0.8 - 3.3 K/cumm J CARLOS Comment:Testing performed by : [address] [address] Monocyte abs 1.0(H) 0.2 - 0.8 K/cumm J CARLOS Comment:Testing performed by : [address] [address] Basophil abs 0.2(H) 0.0 - 0.1 K/cumm J CARLOS Comment:Testing performed by : [address] [address] Neutrophil pct 78.0 % J CARLOS Comment: Interpretive Data Percent cell count reference ranges are not reported, since discordance with absolute values may lead to misinterpretation of CBC data. Current Interpretive Data was last revised on 2017. Testing performed by: [address] [address] Lymphocyte pct 15.0 % J CARLOS Comment: Interpretive Data Percent cell count reference ranges are not reported, since discordance with absolute values may lead to misinterpretation of CBC data. Current Interpretive Data was last revised on 2017. Testing performed by: [address] [address] Monocyte pct 6.0 % J CARLOS Comment: Interpretive Data Percent cell count reference ranges are not reported, since discordance with absolute values may lead to misinterpretation of CBC data. Current Interpretive Data was last revised on 2017. Testing performed by: [address] [address] Basophil pct 1.0 % J CARLOS Comment: Interpretive Data Percent cell count reference ranges are not reported, since discordance with absolute values may lead to misinterpretation of CBC data. Current Interpretive Data was last revised on 2017. Testing performed by: [address] [address] RBC morphology Consistent with RBC Indicies J CARLOS MALONE Comment:Testing performed by : [address] [address] Platelet estimate Automated Count Confirmed J CARLOS MALONE Comment:Testing performed by : [address] [address] Blood 04/04/2024 2:08 PM DIRECTOR [place] 04/04/2024 2:17 PM DIRECTOR [place] us Musa Mcmahan DO LAB BLOOD ORDERABLES Final Res ult J CARLOS [address] [facility] Department [place] [address] * (ABNORMAL) Comprehensive metabolic panel (04/04/2024 2:08 PM DIRECTOR [place]) Sodium 134(L) 135 - 145 mmol/L Comment:Testing performed by : [address] [address] Potassium, pl 4.3 3.3 - 4.9 mmol/L [facility] Comment:Testing performed by : [address] [address] Chloride 98 97 - 110 mmol/L [facility] Comment:Testing performed by : [address], [place]., [address] CO2 27 22 - 32 mmol/L [facility] Comment:Testing performed by : [address] [address] Anion gap 9 2 - 15 mmol/L [facility] Comment:Testing performed by : [address], [place]., [address] BUN 25 6 - 25 mg/dL [facility] Comment:Testing performed by : [address] [address] Creatinine 1.20 0.80 - 1.30 mg/dL [facility] Comment:Testing performed by : [address] [address] Glucose 129 70 - 199 mg/dL [facility] Comment: Interpretive Data Fasting glucose >/= 126 [...] classification and Diagnosis of Diabetes Diabetes Care 202; 46: S19-S40. Current interpretive data was last revised 2022. Testing performed by: [address] [address] Calcium 9.1 8.5 - 10.3 mg/dL [facility] Comment:Testing performed by : [address] [address] Bilirubin, total 0.6 0.1 - 1.2 mg/dL [facility] Comment:Testing performed by : [address] [address] Protein, pl 8.9(H) 6.5 - 8.5 g/dL [facility] Comment:Testing performed by : [address] [address] Albumin 3.9 3.5 - 5.0 g/dL J CARLOS Comment:Testing performed by : [address] [address] Alk phos 59 40 - 130 Units/L J CARLOS Comment:Testing performed by : [address] [address] ALT 26 7 - 55 Units/L J CARLOS Comment:Testing performed by : [address] [address] AST 30 10 - 50 Units/L J CARLOS Comment:Testing performed by : [address] [address] Blood 04/04/2024 2:08 PM DIRECTOR [place] 04/04/2024 2:17 PM DIRECTOR [place] Musa Mcmahan DO LAB BLOOD ORDERABLES Final Res ult Performing Organization Address City/State/[facility] Co de Phone Number J CARLOS [address] [facility] Department of Laboratories [place], [place] [id number] from Last 3 Months Insurance [facility] Advance Directives For more information, please contact: [phone] * Full Code (Latest Code Status on File) Date Activated Date Inactivated Comments 08/25/2023 3:04 PM 08/31/2023 3:46 PM Care Teams Mosaic Worker Relationship Specialty Start Date End Date Thalia Beckman NP [address] [place] [address] PCP - General Nurse Practitioner 04/09/23
--- OUTSIDE RECORDS SUMMARY | 2024-06-21 14:12 | XMS_ITS | Clinical Summary ---
[facility] Address [address] [place] [address] Care Team Providers Care Foam Rubber Mixer Name Role Phone Unavailable Primary Care Provider Unavailabl e Allergies No known active allergies Medications amLODIPine (NORVASC) 5 mg tablet Take 5 mg by mouth daily. Active atorvastatin (LIPITOR) 40 mg tablet Take 40 mg by mouth daily at bedtime. Active furosemide (LASIX) 20 mg tablet Take 20 mg by mouth daily in the morning. 4 Active lisinopriL (PRINIVIL) 40 mg tablet Take 40 mg by mouth daily. Active metoprolol succinate (TOPROL XL) 25 mg Extended Release 24 hour tablet Take 25 mg by mouth daily. 4 Active Ozempic 1 mg/dose (4 mg/3 mL) Pen Injector ADMINISTER 1 MG UNDER THE SKIN WEEKLY 4 Active metFORMIN (GLUCOPHAGE) 500 mg tablet Take 500 mg by mouth 2 times daily with meals. Active Active Problems No known active problems Encounters Date Type Department Care Team Description 05/30/2024 External Device Data STL ABSTRACTION Provider, Abstract from Last 3 Months Family History Medical History Relation Name Comments No Known Problems Brother Heart Attack Father Hypertension Father No Known Problems Mother Relation Name Status Comments Brother Alive Father Alive Mother Alive Social History Tobacco Use Types Packs/Day Years Used Date Smoking Tobacco: Never Smokeless Tobacco: Never Alcohol Use Standard Drinks/Week Comments Not Currently 0 (1 standard drink = 0.6 oz pur e alcohol) Takes dayquil and nyquil Sex and Gender Information Value Date Recorded Sex Assigned at Male 02/03/2024 7:33 PM CDT Legal Sex Male 10:17 AM CDT Gender Identity Male 02/03/2024 7:33 PM CDT Sexual Orientation Not on file Last Filed Vital Signs Vital Sign Reading Time Taken Comments Blood Pressure 144/82 02/02/2024 3:03 PM CDT Pulse 104 02/02/2024 2:53 PM CDT Temperature 36.9 C (98.4 F) 02/02/2024 2:53 PM CDT Respiratory Rate 15 02/02/2024 2:53 PM CDT Oxygen Saturation 97% 02/02/2024 2:53 PM CDT Inhaled Oxygen Concentration - - Weight 153 kg (337 lb 6.4 oz) 02/02/2024 2:53 PM CDT Height 180.3 cm (5' 11 ) 02/02/2024 2:53 PM CDT Body Mass Index 47.06 02/02/2024 2:53 PM CDT Plan of Treatment Upcoming Encounters Date Type Department Care Team (Late st Contact Info) Description 06/28/2024 2:30 PM HEARING AID REPAIR TECHNICIAN Office Visit [facility] Oncology and Hematology - [place] [address] [facility] [address] [place] [address] Tito Degroot MD [address] [facility] [address] [place] [address] Health Maintenance Due Date Last Done Comments Pre-Diabetes and Diabetes Screening 1976 DTAP/TDAP/TD VACCINES (1 - Tdap) 08/18/1995 HEPATITIS B VACCINES (1 of 3 - 19+ 3-dose series) 08/07 COLORECTAL SCREENING 2021 Colorectal Cancer Screening 2021 FIT-DNA Q 3 years 2021 FIT/FOBT Q 1 year 2021 Flex Sig/CT Colonography Q 5 years 2021 INFLUENZA VACCINE (#1) 2023 Preventative Visit- Commercial 05/09/2024 Insurance [facility] OPEN ACCESS HMO
[2024-06-21 14:17] LABS: Basophils Absolute Auto 0.1 K/mm3 (0.0-0.1); Basophils Percent Auto 0.7 % (0.2-1.2); Eosinophils Absolute Auto 0.3 K/mm3 (0-0.3); Eosinophils Percent Auto 2.3 % (0-4.4); Hematocrit 39.9 % (42.0-52.0); Immature Granulocyte Absolute 0.03 K/mm3 (0.00-0.031); Immature Granulocyte Percent A 0.2 % (0-0.5); Lymphocytes Absolute Auto 3.88 K/mm3 (0.9-3.2); Lymphocytes Percent Auto 31.8 % (18.3-44.2); Mean Corpuscular HGB Conc 32.6 g/dl (32-36); Mean Corpuscular Hemoglobin 31.2 pg (26-34); Mean Corpuscular Volume 95.7 fl (80-100); Monocytes Absolute Auto 0.9 K/mm3 (0.1-0.6); Monocytes Percent Auto 7.5 % (2.6-8.5); Neutrophils Percent Auto 57.5 % (45.5-73.1); Platelet Count Result 267 k/mm3 (150-375); Red Blood Count 4.17 M/mm3 (4.6-6.20); White Blood Count 12.2 K/mm3 (4.5-10.0)
[2024-06-21 17:00] LABS: Alanine Aminotransferase 34 U/L (6-50); Albumin Level 4.3 g/dL (3.5-5.1); Alkaline Phosphatase 72 U/L (38-126); Anion Gap 9 mmol/L (4-12); Aspartate Amino Transferase 47 U/L (17-59); Bilirubin,Total 0.5 mg/dL (0.2-1.3); Blood Urea Nitrogen 14 mg/dL (9-20); Calcium 9.3 mg/dL (8.4-10.2); Carbon Dioxide 31 mmol/L (22-30); Chloride 103 mmol/L (98-107); Estimated Glomerular Filt Rate > 60; Glucose 119 mg/dL (65-110); Sodium 143 mmol/L (137-145)
[2024-06-22 11:14] LABS: Protein, Total 8.4 g/dL (6.1-8.1)
[2024-06-22 21:13] LABS: Albumin 3.9 g/dL (3.8-4.8); Alpha 1 Globulin 0.3 g/dL (0.2-0.3); Alpha 2 Globulin 0.9 g/dL (0.5-0.9); Beta 1 Globulin 0.5 g/dL (0.4-0.6); Gamma Globulin 2.2 g/dL (0.8-1.7)
== END 2024-06-21 14:07 | disposition home or self-care (01) ==
LOC: ANHLAB 14:07
PROVIDERS: PCP Nurse Practitioner Family; Visit Provider Internal Medicine Hematology & Oncology
DX: D72.829 Elevated white blood cell count, unspecified (principal)
CPT/HCPCS: 36415; 80053; 84155; 84165; 85025

== ENCOUNTER 2024-10-25 09:34 | Emergency (ER) | payer OTHER, SELFPAY ==
[2024-10-25 09:42] VITALS: BP 142/80; PULSE 76; RESP 18; TEMP 36.4; O2SAT 97
--- NOTE | 2024-10-25 09:48 | ED_ITS ---
HPI - Wound/Laceration General Chief Complaint: Wound/Laceration Stated Complaint: RT Hand Finger infection Source: patient Mode of arrival: ambulatory Limitations: no limitations History of Present Illness HPI narrative: 41-year-old male presented for complaint of redness, swelling, pain around the nail of the right middle finger. Says it started red and swollen about 5 days ago, and has worsened since. His poked it last night with a thubmtack, admitting they did not sterilize the tack. Endorses large amount of green drainage with foul odor. Related Data Home Medications ?Medication ?Instructions ?Recorded ?Confirmed ?Last Taken ?Type cholecalciferol (vitamin D3) 125 125 mcg PO TID 12/21/23 06/29/24 Unknown History mcg (5,000 unit) capsule lactobacillus combination no.9 4 4,000 mmu cells PO DAILY 04/09/24 06/29/24 Unknown History billion cell capsule (Adult 50 Plus Probiotic) Allergies Allergy/AdvReac Type Severity Reaction Status Date / Time alprazolam (From Xanax) AdvReac Intermediate ankle edema Verified 10/25/24 09:41 fexofenadine (From Holly) AdvReac Intermediate elevated Verified 10/25/24 09:41 blood pressure Review of Systems Review of Systems: CONSTITUTIONAL: Denies body aches, fever, chills, or sweats. EYES: Denies visual changes, redness, or discharge. ENT: Denies rhinorrhea, congestion CARDIOVASCULAR: Denies chest pain, palpitations, or edema. RESPIRATORY: Denies cough or dyspnea. GASTROINTESTINAL: Denies abdominal pain, nausea, vomiting, or diarrhea. SKIN: per HPI MUSCULOSKELETAL: Denies back pain, joint pain, or myalgia. NEUROLOGIC: Denies headache, numbness, tingling, or weakness. [facility] Past Medical History Medical History Heart disease Allergies Family History Family History Father Hypertension Heart disease Mother Diabetes mellitus Social History Social History Social History: 06/22/24 very confident with medical forms Smoking status: Never smoker Alcohol intake: current Alcohol use details: seldom Substance use: never Substance use type: does not use Do You Feel Safe in your Home?: Yes Lack of Transportation: No Lack of Food: Never True Current Housing: I Have Housing Concerned About Future Housing: No Difficulty Paying Gas/Electric Bills: No Difficulty Paying for Meds: No Currently Unemployed: No Education: Bachelor's Degree Difficulty w/ Childcare or Family Care: No Living arrangements: with family Occupation/Education: occupation 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 Please see nursing chart for further information. There is no relevant family history pertinent to the presenting complaint Exam Narrative: GENERAL: Well-appearing ENT: Mucous membranes moist. CHEST: Clear to auscultation. HEART: Regular rate and rhythm. SKIN: Warm, dry. Right 3rd digit distal phalanx appears swollen, with erythema around the nail. Blood blister noted to the ulnar side of the nail, active serosanguineous fluid expressed with manual pressure. CMS intact. NEURO: Alert and oriented x3. Course Course Emergency Course: Patient is aware of diagnosis, understands and agrees to treatment plan. Anticipatory guidance given. Patient agrees to follow-up as directed and is aware of reasons to seek care at the emergency department. Portions of this record may have been created with voice recognition software Level of Care: Express Care Visit Vital Signs Vital signs: Vital Signs Temperature 97.6 F 10/25/24 09:42 Pulse Rate 76 10/25/24 09:42 Respiratory Rate 18 10/25/24 09:42 Blood Pressure 142/80 H 10/25/24 09:42 Pulse Oximetry 97 10/25/24 09:42 Oxygen Delivery Room Air 10/25/24 09:42 Temperature 97.6 F 10/25/24 09:42 Pulse Rate 76 10/25/24 09:42 Respiratory Rate 18 10/25/24 09:42 Blood Pressure 142/80 H 10/25/24 09:42 Pulse Oximetry 97 10/25/24 09:42 Oxygen Delivery Room Air 10/25/24 09:42 Reviewed Procedures Abscess I/D right 3rd digit: Abcess I&D Additional Comments: The procedure and its alternatives were reviewed with patient. Risks were reviewed with patient including infection and damage to nearby structures. Patient provided verbal informed consent. The patient was positioned appropriately. After soaking the digit, Single straight puncture was made to center of most fluctuant area. Moderate amount of serosanguineous discharge expelled with manual pressure. Pt tolerated the procedure well, no complications. Dressing applied per RN. MDM - Wound/Laceration MDM Narrative Medical decision making narrative: Pt with large paronychia to right 3rd digit, had expelled purulent material last night. Able to express serosanguineous fluid, and pt tolerated #18g needle aspiration of remaining fluid. Reported improvement in pain. Discussed physical exam findings. Rx cephalexin. Advised supportive measures and signs/symptoms to go to the ER. Pt is appropriate for outpt treatment and f/u. Differential Diagnosis Differential diagnosis: Likely abscess, abrasion, avulsion of skin and other (paronychia, felon) Discharge Plan Discharge Clinical Impression: Paronychia Patient Disposition: Home Condition: Stable Instructions: Antibiotic Form, Paronychia (ED) Additional Instructions: Soak your finger in warm soapy water 4 times each day. This can help with any additional drainage that needs to come out. Keep the area covered while draining Raise your hand above the level of your heart as often as you can. This will help decrease swelling and pain. Avoid biting your nails, and biting or cutting your cuticles Tylenol as needed for pain Take antibiotic as directed Please follow-up with your primary care doctor in the next 3 days. Go to the ER for any worsening symptoms or concerns including more redness, swelling, pain or fever Patient Language: Kinyarwanda Prescriptions: New cephalexin 500 mg capsule 500 mg PO Q6H 5 Days Qty: 20 0RF No Action Adult 50 Plus Probiotic 4 billion cell capsule 4,000 mmu cells PO DAILY cholecalciferol (vitamin D3) 125 mcg (5,000 unit) capsule 125 mcg PO TID omeprazole 20 mg capsule,delayed release(DR/EC) 20 mg PO BID Qty: 60 0RF metoprolol succinate 25 mg tablet extended release 24 hr See Rx Instructions .ROUTE .COMPLEX Qty: 90 1RF Dose Instruction: TAKE 1 TABLET BY MOUTH DAILY Rx Instructions: TAKE 1 TABLET BY MOUTH DAILY lisinopril 40 mg tablet 40 mg PO DAILY Qty: 90 1RF amlodipine 5 mg tablet 5 mg PO DAILY Qty: 90 1RF atorvastatin 40 mg tablet 40 mg PO QHS Qty: 90 1RF metformin 500 mg tablet extended release 24 hr 1,000 mg PO DAILY Qty: 180 1RF furosemide 20 mg tablet 20 mg PO QAM Qty: 90 0RF semaglutide 0.25 mg or 0.5 mg(2 mg/1.5 mL) pen injector 0.5 mg subcut WEEKLY Qty: 1.5 0RF Follow-up/Referrals: Thalia Beckman, SULFONATOR OPERATOR-C [Primary Care Provider] - Time of Disposition: 10:03
--- OUTSIDE RECORDS SUMMARY | 2024-10-25 10:01 | XMS_ITS | Referral Summary ---
Author Organization [facility] Address [address] [place] [address] Care Team Providers Care Embedded Developer Name Role Phone Thalia Beckman NP Primary Care Provider [phone] Allergies No known active allergies Medications metoprolol [...] Tobacco: Never Tobacco Cessation:Counseling Given: Not Answered [facility] Utilities Answer Date Recorded In [...] often do you attend chur ch or taoism services? Never 08/26/2023 Do you belong to any clubs o r organizations such as anglican groups, unions, fraternal or athletic groups, or [...] on file Legal Sex Male 6:08 PM BRINE SUPERVISOR Gender Identity Not on file Sexual Orientation Not on file Last Filed Vital Signs Vital Sign Reading Time Taken Comments Blood Pressure 110/59 04/04/2024 4:00 PM BRINE SUPERVISOR Pulse 104 04/04/2024 4:00 PM BRINE SUPERVISOR Temperature 37.3 C (99.1 F) 04/04/2024 1:43 PM BRINE SUPERVISOR Respiratory Rate 18 04/04/2024 4:00 PM BRINE SUPERVISOR Oxygen Saturation 100% 04/04/2024 4:00 PM BRINE SUPERVISOR Inhaled Oxygen Concentration - - Weight 155.3 kg (342 lb 6 oz) 04/04/2024 1:43 PM BRINE SUPERVISOR Height 180.3 cm (5' 11) 04/04/2024 1:43 PM BRINE SUPERVISOR Body Mass Index 47.75 04/04/2024 1:43 PM BRINE SUPERVISOR Plan of Treatment Not on [place] [address] CIG [facility] [facility] H[facility]/PPO Address: [facility] [id number] [place] [phone] Advance Directives For more information, please contact: [phone] * Full Code (Latest Code Status on File) Date Activated Date Inactivated Comments 08/25/2023 3:04 PM 08/31/2023 3:46 PM Care Teams Embedded Developer Relationship Specialty Start Date End Date Thalia Beckman NP [address] [place] [phone] PCP - General Nurse Practitioner 04/09/23
--- OUTSIDE RECORDS SUMMARY | 2024-10-25 10:01 | XMS_ITS | Clinical Summary ---
Author Organization [facility] Address [address] [place] [address] Care Team Providers Care Cage Cashier Name Role Phone Thalia Beckman NP Primary Care Provider [phone] Allergies No known active allergies Medications metoprolol [...] 08/25/2023 Cellulitis of right lower extremity 08/25/2023 Medical History Medical History Date Comments Hypertension Morbid obesity (HCC) Hyperlipidemia Social History Tobacco Use Types Packs/Day Years Used Date Smoking Tobacco: Never Smokeless Tobacco: Never Tobacco Cessation:Counseling Given: Not Answered [facility] Utilities Answer Date Recorded In the [...] often do you attend chur ch or yazdanism services? Never 08/26/2023 Do you belong to any clubs o r organizations such as jew groups, unions, fraternal or athletic groups, or [...] No 08/26/2023 Housing Stability Vital Sign Answer Jos Eluis e Recorded In the last 12 months, [...] place to sleep or slept in a senior care (including now)? No 08/26/2023 Personal Safety Answer Date Recorded Have you ever been in or are you currently in a harmful physical or emotional relationship or is someone making you feel afraid or unsafe? Denies 04/04/2024 Sex and Gender Information Value Date Recorded Sex Assigned at Not on file Legal Sex Male 6:08 PM INCREMENT MANAGER Gender Identity Not on file Sexual Orientation Not on file Obstetrics History Last Filed Vital Signs Vital Sign Reading Time Taken Comments Blood Pressure 110/59 04/04/2024 4:00 PM INCREMENT MANAGER Pulse 104 04/04/2024 4:00 PM INCREMENT MANAGER Temperature 37.3 C (99.1 F) 04/04/2024 1:43 PM INCREMENT MANAGER Respiratory Rate 18 04/04/2024 4:00 PM INCREMENT MANAGER Oxygen Saturation 100% 04/04/2024 4:00 PM INCREMENT MANAGER Inhaled Oxygen Concentration - - Weight 155.3 kg (342 lb 6 oz) 04/04/2024 1:43 PM INCREMENT MANAGER Height 180.3 cm (5' 11) 04/04/2024 1:43 PM INCREMENT MANAGER Body Mass Index 47.75 04/04/2024 1:43 PM INCREMENT MANAGER Plan of Treatment Health Maintenance Due Date Last Done Comments Colon Cancer Screening-Colonoscopy 1975 Depression Screening 1975 Hepatitis C Screening 1976 DTaP/Tdap/Td Vaccine (1 - Tdap) 11/04/1990 1 Hepatitis B Screening 1994 Regular Well Visit/Exam 18-64 1994 Pneumococcal vaccine <65 (1 of 2 - PCV) 08/18/1995 Covid-19 Vaccine (3 - season) 2024, 12/16/2020 Influenza Vaccine (Season Ended) 2025 Insurance [facility] Advance Directives For more information, please contact: [phone] * Full Code (Latest Code Status on File) Date Activated Date Inactivated Comments 08/25/2023 3:04 PM 08/31/2023 3:46 PM Care Teams Cage Cashier Relationship Specialty Start Date End Date Thalia Beckman NP [address] [place] [id number] PCP - General Nurse Practitioner 04/09/23
--- OUTSIDE RECORDS SUMMARY | 2024-10-25 10:02 | XMS_ITS | Clinical Summary ---
[facility] Address [address] [place] [address] Care Team Providers Care Auditor Name Role Phone Unavailable Primary Care Provider [...] Encounters Date Type Department Care Team Description 10/09/2024 External Device Data [facility] ABSTRACTION Provider, Abstract 09/27/2024 External Device Data [facility] ABSTRACTION Provider, Abstract 09/26/2024 External Device Data [facility]STRACTION Provider, Abstract 09/25/2024 External Device Data [facility] ABSTRACTION Provider, Abstract 08/21/2024 External Device Data [facility] ABSTRACTION Provider, Abstract from Last 3 Months Family History Medical History Relation Name Comments No Known Problems Brother Heart Attack Father Hypertension Father No Known Problems Mother Relation Name Status Comments Brother Alive Father Alive Mother Alive Social History Tobacco Use Types Packs/Day Years Used Date Smoking Tobacco: Never Smokeless Tobacco: Never Tobacco Cessation:Counseling Given: Not Answered Alcohol Use Standard Drinks/Week Comments Not Currently [...] Sign Reading Time Taken Comments Blood Pressure 165/87 06/28/2024 2:24 PM UPHOLSTERED GOODS CRAFTER Pulse 109 06/28/2024 2:19 PM [employer]PH[employer]ED [employer] CRAFTER Temperature 36.1 C (96.9 F) 06/28/2024 2:19 PM UPHOLSTERED GOODS CRAFTER Respiratory Rate 16 06/28/2024 2:19 PM UPHOL[employer]ED [employer] CRAFTER Oxygen Saturation 97% 06/28/2024 2:19 PM UPH[employer]ED [employer] CRAFTER Inhaled Oxygen Concentration - - Weight 155.5 kg (342 lb 12.8 oz) 06/28/2024 2:19 PM UPHOL[employer]ED [employer] CRAFTER Height 180.3 cm (5' 11) 02/02/2024 2:53 PM CDT Body Mass Index 47.81 02/02/2024 2:53 PM CDT Plan of Treatment Upcoming Encounters Date Type Department Care Team (Late st Contact Info) Description 06/28/2025 12:45 PM UPHOLSTERED GOODS CRAFTER Office Visit [facility] - [place] [address] [facility] [address] [place] [address] Tito Degroot MD [address] [facility] [address] [place] [address] Health Maintenance Due Date Last Done Comments Pre-Diabetes and Diabetes Screening 1976 DTAP/TDAP/TD VACCINES (1 - Tdap) 08/18/1995 HEPATITIS B VACCINES (1 of 3 - 19+ 3-dose series) 08/07 COLORECTAL SCREENING 2021 Colorectal Cancer Screening 2021 FIT-DNA Q 3 years 2021 FIT/FOBT Q 1 year 2021 Flex Sig/CT Colonography Q 5 years 2021 INFLUENZA VACCINE (#1) 2023 Insurance [facility] OPEN ACCESS HMO
== END 2024-10-25 10:25 | disposition home or self-care (01) ==
PROVIDERS: Emergency Provider Nurse Practitioner Family; PCP Nurse Practitioner Family
DX: L03.011 Cellulitis of right finger (principal)
CPT/HCPCS: 10060; 99213; G0463